=== PATIENT | female | born 1990 | race Caucasian/White ===

== ENCOUNTER 2017-08-14 06:14 | Day surgery (SDC) | payer SELFPAY ==
[2017-08-08 15:49] VITALS: BMI 24.0
[2017-08-14] MEDS ORDERED: GENTAMICIN SO4 80 MG/2 ML VIAL ONE ×3 (07:20→12:49)
[2017-08-14] MEDS ORDERED: ceFAZolin SODIUM 1 GM VIAL ONE ×3 (07:20→12:49)
[2017-08-14] MEDS ORDERED: BUPIVACAINE HCL/PF 2.5 MG/ML - 30 ML VIAL IJ ONE (07:20)
[2017-08-14] MEDS ORDERED: LIDOCAINE 1%/EPI 1:100000 (20 ML MULTI DOSE VIAL) ONE (07:20)
[2017-08-14] MEDS ORDERED: ONDANSETRON 4 MG/2 ML VIAL ONE ×2 (07:33→13:10)
[2017-08-14] MEDS ORDERED: SUCCINYLCHOLINE CHLORIDE 200 MG/10 ML VIAL ONE (07:33)
[2017-08-14] MEDS ORDERED: PROPOFOL 20 ML ONE (07:33)
[2017-08-14] MEDS ORDERED: DEXAMETHASONE SOD PHOSPHATE 4 MG/1 ML VIAL ONE ×2 (07:33→13:10)
[2017-08-14] MEDS ORDERED: ROCURONIUM BROMIDE 50 MG/5 ML VIAL ONE (07:33)
[2017-08-14] MEDS ORDERED: MIDAZOLAM HCL 2 MG/2 ML SINGLE DOSE VIAL ONE (07:34)
[2017-08-14] MEDS ORDERED: fentaNYL CITRATE 250 MCG/5 ML VIAL ONE ×2 (07:35→09:43)
[2017-08-14] MEDS ORDERED: DESFLURANE GAS 240 ML BOTTLE IH ONE (08:44)
[2017-08-14] MEDS ORDERED: ISOSULFAN BLUE 10 MG/ML VIAL SQ ONE (10:55)
[2017-08-14] MEDS ORDERED: oxyCODONE HCL 5 MG TABLET PO PRN (17:18)
[2017-08-14] MEDS ORDERED: ONDANSETRON 4 MG/2 ML VIAL IVPUSH PRN (17:18)
[2017-08-14] MEDS ORDERED: oxyCODONE HCL 5 MG TABLET ONE ×2 (17:29→18:04)
[2017-08-14] MEDS: oxyCODONE HCL 5 MG TABLET PO PRN ×2 (17:30→18:00)
[2017-08-14] MEDS ORDERED: LACTATED RINGERS SOLUTION 1,000 ML IV SCH (17:30)
[2017-08-14 17:40] VITALS: TEMP 99.1
[2017-08-14 19:13] VITALS: BP 149/70; PULSE 99
== END 2017-08-14 18:45 | disposition home or self-care (01) ==
LOC: FASU 06:14
PROVIDERS: ATTEND Surgery
PROC: 0H0U0JZ Alteration of Left Breast with Synthetic Substitute, Open Approach (ICD-10-PCS; 2017-08-14)
PROC: 0H0V0ZZ Alteration of Bilateral Breast, Open Approach (ICD-10-PCS; principal; 2017-08-14 09:06)
DX: Z41.1 Encounter for cosmetic surgery (principal)
CPT/HCPCS: 84703

== ENCOUNTER 2017-08-21 15:56 | Inpatient (IN) | payer OTHER ==
--- NOTE | 2017-08-21 16:00 | PDOC ---
History of Present Illness <Remy Fishman - Last Filed: 08/21/17 17:48> - General History Source: Patient Exam Limitations: No Limitations - History of Present Illness Initial Comments: 08/21/17 16:58 CHIEF COMPLAINT: Left breast infection HISTORY OF PRESENT ILLNESS: 26-year-old female presents from the plastic surgeon 's office for evaluation and admission of left breast infection. She had bilateral breast augmentation performed on August [address] Syeda Marrero. She has been followed since the surgery and was started 2 days ago on cefadroxil and clindamycin for redness. At this time the breast has increasing redness. Dr. Shabbir Hooks performed a wound culture in the office today. She says the patient in now for IV antibiotics, breast ultrasound examination, and admission with infectious disease consultation. Patient denies fever. She does have some tenderness of the breast in the area of the erythema. REVIEW OF SYSTEMS: No fever or chills Positive left breast pain and redness Status post surgery for breast augmentation on 08/14/2017 No nausea or vomiting <Eric Montgomery - Last Filed: 08/21/17 18:11> - General Chief Complaint: Wound Stated Complaint: LEFT BREAST WOUND INFECTION Time Seen by Provider: 08/21/17 15:59 Past History <Remy Fishman - Last Filed: 08/21/17 17:48> - Past Medical History Anemia: No Asthma: Yes (HAS NOT HAD AN EPISODE IN MANY YEARS) Cancer: No Cardiac Disorders: No CVA: No COPD: No CHF: No Dementia: No Diabetes: No GI Disorders: No Disorders: No HTN: No Hypercholesterolemia: No Liver Disease: No Seizures: No Thyroid Disease: No - Surgical History Abdominal Surgery: Yes (09/2016 ABDOMINOPLASTY) Appendectomy: No Cardiac Surgery: No Cholecystectomy: No Lung Surgery: No Neurologic Surgery: No Orthopedic Surgery: No - Suicide/Smoking/Psychosocial Hx Smoking History: Current some day smoker Have you smoked in the past 12 months: Yes If you are a former smoker, when did you quit?: OCCASIONAL HOOKAH Hx Alcohol Use: Yes (SOCIALLY) Drug/Substance Use Hx: No Substance Use Type: Alcohol <Eric Montgomery - Last Filed: 08/21/17 18:11> - Past Medical History Allergies/Adverse Reactions: Allergies Allergy/AdvReac Type Severity Reaction Status Date / Time No Known Allergies Allergy Verified 08/21/17 15:58 Home Medications: Ambulatory Orders Escitalopram Oxalate [Lexapro -] 10 mg PO HS 08/08/17 Cefadroxil [Cefadroxil] 500 mg PO BID 08/21/17 Clindamycin [Cleocin -] 300 mg PO QID 08/21/17 *Physical Exam - Vital Signs Last Vital Signs Temp Pulse Resp BP Pulse Ox 98.4 F 82 18 117/74 100 08/21/17 15:58 08/21/17 15:58 08/21/17 15:58 08/21/17 15:58 08/21/17 15:58 <Remy Fishman - Last Filed: 08/21/17 17:48> - Physical Exam Comments: 08/21/17 17:01 GENERAL: The patient is awake, alert, and fully oriented, in no acute distress. She complains of mild discomfort in the left breast. HEAD: Normal with no signs of trauma. EYES: Pupils equal, round and reactive to light, extraocular movements intact, sclera anicteric, conjunctiva clear. ENT: Ears normal, nares patent, oropharynx clear without exudates. Moist mucous membranes. NECK: Normal range of motion, supple without lymphadenopathy, JVD, or masses. LUNGS: Breath sounds equal, clear to auscultation bilaterally. No wheezes, and no crackles. HEART: Regular rate and rhythm, normal S1 and S2 without murmur, rub or gallop. BREASTS: The right breast shows healing of the areole and the inferior breast incision without discharge or erythema. The left breast reveals small areas of skin breakdown at the margin of the left areola. There is mild redness without purulent drainage. There is positive tenderness around the areola. There is no palpable fluctuance or collection on examination. ABDOMEN: Soft, nontender, normoactive bowel sounds. No guarding, no rebound. No masses. EXTREMITIES: Normal range of motion, no edema. No clubbing or cyanosis. No cords, erythema, or tenderness. NEUROLOGICAL: Cranial nerves II through XII grossly intact. Normal speech, normal gait. PSYCH: Normal mood, normal affect. SKIN: Warm, Dry, normal turgor, no rashes or lesions noted beyond the breasts as noted above. <Eric Montgomery - Last Filed: 08/21/17 18:11> ED Treatment Course - LABORATORY CBC & Chemistry Diagram: 08/21/17 16:20 08/21/17 16:20 - ADDITIONAL ORDERS Additional order review: Laboratory Results 08/21/17 16:20 Sodium 136 Potassium 3.6 Chloride 102 Carbon Dioxide 29 H Anion Gap 5 L BUN 11 Creatinine < 0.8 Creat Clearance w eGFR > 60 Random Glucose 102 Calcium 8.6 Total Bilirubin 0.6 AST 26 ALT 28 Alkaline Phosphatase 51 Total Protein 7.0 Albumin 3.7 08/21/17 16:20 RBC 4.02 MCV 87.5 MCHC 35.5 RDW 11.6 MPV 6.7 L Neutrophils % 67.7 Lymphocytes % 25.3 Monocytes % 4.7 Eosinophils % 1.8 Basophils % 0.5 - Medications Given in the ED: ED Medications Discontinued Medications Generic Name Dose Route Start Last Admin Trade Name Freq PRN Reason Stop Dose Admin Piperacillin Sod/Tazobactam 100 mls @ 200 mls/hr 08/21/17 16:01 08/21/17 16: 33 Sod 4.5 gm/ Dextrose IVPB 08/21/17 16:30 200 mls/hr ONCE ONE Administration Sodium Chloride 1,000 mls @ 1,000 mls/hr 08/21/17 16:01 08/21/17 16:20 Normal Saline - IV 08/21/17 17:00 1,000 mls/hr ASDIR STA Administration Vancomycin HCl 1,000 mg/ 250 mls @ 250 mls/hr 08/21/17 16:02 08/21/17 17:14 Dextrose IVPB 08/21/17 17:01 250 mls/hr ONCE ONE Administration Protocol <Remy Fishman - Last Filed: 08/21/17 17:48> - LABORATORY CBC & Chemistry Diagram: 08/21/17 16:20 08/21/17 16:20 <Eric Montgomery - Last Filed: 08/21/17 18:11> Medical Decision Making - Medical Decision Making 08/21/17 17:[address] Syeda Marrero at 5:49 pm in regards to preliminary ultrasound reading. <Remy Fishman - Last Filed: 08/21/17 17:48> - Medical Decision Making 08/21/17 17:50 26-year-old female presents from the plastic surgeon's office. She is status post breast augmentation on 08/14/2017. She was noted to have redness of the left breast 2 days ago and was started on cefadroxil and clindamycin. Today she was seen in follow-up in the office and was noted to have progression of the breast redness with a little bit of skin breakdown at the suture line of the areola. A wound culture was done in the office and the patient was referred to the ED for blood cultures, breast ultrasound, and admission for IV antibiotics. On my examination the right breast is healing nicely with no tenderness or erythema. The left breast has some erythema at the margin of the areola. There is no purulent drainage. There is some tenderness of the left breast but no sign of fluctuance or collection. Breast ultrasound was performed and Dr. Luis Mart today preliminary look at the study. He saw no signs of a collection. The breast ultrasound will be officially read by the specialist radiologist later. I conferred with Dr. Neil regarding these findings. Laboratory studies reviewed. White blood cell count is elevated to 11 without a left shift. Impression: Left breast infection status post surgery on 08/14/2017. Dr. Simpson at requested hospitalist admission and she will see the patient daily. She further requested ID consult and the infectious disease doctor has been paged. Patient has already been started on a stat dose of Zosyn and vancomycin in the emergency department. Laboratory study results: Laboratory Results - last 24 hr 08/21/17 08/21/17 16:20 16:20 WBC 11.4 H RBC 4.02 Hgb 12.5 Hct 35.2 MCV 87.5 MCH 31.1 MCHC 35.5 RDW 11.6 Plt Count 404 MPV 6.7 L Neutrophils % 67.7 Lymphocytes % 25.3 Monocytes % 4.7 Eosinophils % 1.8 Basophils % 0.5 Sodium 136 Potassium 3.6 Chloride 102 Carbon Dioxide 29 H Anion Gap 5 L BUN 11 Creatinine < 0.8 Creat Clearance w eGFR > 60 Random Glucose 102 Calcium 8.6 Total Bilirubin 0.6 AST 26 ALT 28 Alkaline Phosphatase 51 Total Protein 7.0 Albumin 3.7 08/21/17 18:10 Ultrasound findings discussed with Dr. Marrero. Infectious disease provider relations consultant Dr. Cordero called back and will accept the consult. Current antibiotic treatment was reviewed. <Eric Montgomery - Last Filed: 08/21/17 18:11> *DC/Admit/Observation/Transfer <Remy Fishman - Last Filed: 08/21/17 17:48> - Discharge Dispostion Admit: Yes Decision to Admit order Date/Time: 08/21/17 18:[address] Mclean, hospitalist service, consult ID, consult with plastic surgeon. <Eric Montgomery - Last Filed: 08/21/17 18:11> Diagnosis at time of Disposition: Mastitis - Discharge Dispostion Condition at time of disposition: Stable
[2017-08-21] MEDS ORDERED: PIPERACILLIN/TAZOB 4.5 GM 4.5 GM in DEXTROSE 5%-WATER 100 ML IVPB ONE (16:01)
[2017-08-21] MEDS ORDERED: SODIUM CHLORIDE 1,000 ML IV STA (16:01)
[2017-08-21] MEDS ORDERED: VANCOMYCIN 1,000 MG in DEXTROSE 5%-WATER - 250 ML IVPB ONE (16:02)
[2017-08-21] MEDS ORDERED: PIPERACILLIN/TAZOBACTAM 4.5 GM VIAL IVPB ONE (16:11)
[2017-08-21] MEDS ORDERED: VANCOMYCIN 1,000 MG VIAL (RESTRICTED TO ID ONLY) ONE (16:11)
[2017-08-21 16:42] LABS: BASO % 0.5 % (0-2.0); EOS % 1.8 % (0-4.5); HEMATOCRIT 35.2 % (32.4-45.2); HEMOGLOBIN 12.5 GM/dl (10.7-15.3); LYMPH % 25.3 % (8-40); MCH 31.1 pg (25.7-33.7); MCHC 35.5 g/dl (32.0-36.0); MEAN CELL VOLUME 87.5 fl (80-96); MEAN PLT VOLUME 6.7 fl (7.5-11.1); MONO % 4.7 % (3.8-10.2); NEUT % 67.7 % (42.8-82.8); PLATELET COUNT 404 K/MM3 (134-434); RBC 4.02 M/mm3 (3.60-5.2); RDW 11.6 % (11.6-15.6); WHITE BLOOD COUNT 11.4 K/mm3 (4.0-10.8)
[2017-08-21 17:07] LABS: ALBUMIN 3.7 g/dl (3.5-5.0); ALK PHOS 51 U/L (32-92); ANION GAP 5 (8-16); BLOOD UREA NITROGEN 11 mg/dl (7-18); CALCIUM 8.6 mg/dl (8.4-10.2); CHLORIDE 102 mmol/L (98-107); CO2 29 mmol/L (22-28); GLUCOSE,RANDOM 102 mg/dl (74-106); POTASSIUM 3.6 mmol/L (3.5-5.1); SGOT/AST 26 U/L (10-42); SGPT/ALT 28 U/L (10-40); SODIUM 136 mmol/L (136-145)
[2017-08-21 17:28] LABS: BILIRUBIN,TOTAL 0.6 mg/dl (0.2-1.0)
[2017-08-21 17:29] LABS: CREATININE < 0.8 mg/dl (0.6-1.3)
[2017-08-21 18:57] VITALS: BMI 24.1
[2017-08-21] MEDS ORDERED: PIPERACIL/TAZOB 3.375 GM 3.375 GM/50 ML PREMIX IVPB ONE (23:00)
[2017-08-21] MEDS ORDERED: PIPERACILLIN/TAZOB 3.375 GM 3.375 GM/50 ML BAG IVPB ONE (23:00)
--- NOTE | 2017-08-22 00:21 | HP ---
CHIEF COMPLAINT: left breast infection PCP: Elida HISTORY OF PRESENT ILLNESS: This is a 26 year old female with a remote history of asthma and recent breast augmentation on 08/14 who presented to the ED from her surgeon's office for cellulitis. She has been following in the office and her antibiotics were changed on Friday to cefadroxil and clindamycin but the redness has gotten worse. Her surgeon was able to squeeze out a small amount of discharge and obtained a wound culture in the office today and then sent her to the ED for IV antibiotics. Pt reports that her pain is manageable and has had no fever. ER course was notable for: (1) WBC 11.4, lactic acid WNL (2) breast and axilla US done, results pending Recent Travel: pt denies PAST MEDICAL HISTORY: asthma PAST SURGICAL HISTORY: abdominoplasty 09/25, fibroidectomy 2015 Social History: Smoking: occ IDverge Alcohol: socially 1x per week Drugs: pt denies Family History: mother alive and well father alive, s/p CA age 53 sister alive and well Allergies No Known Allergies Allergy (Verified 08/21/17 15:58) HOME MEDICATIONS: 3 Medication Instructions Recorded Escitalopram Oxalate [Lexapro -] 10 mg PO HS 08/08/17 Cefadroxil [Cefadroxil] 500 mg PO BID 08/21/17 Clindamycin [Cleocin -] 300 mg PO QID 08/21/17 REVIEW OF SYSTEMS CONSTITUTIONAL: Absent: fever, chills, diaphoresis, generalized weakness, malaise, loss of appetite, weight change HEENT: Absent: rhinorrhea, nasal congestion, throat pain, throat swelling, difficulty swallowing, mouth swelling, ear pain, eye pain, visual changes CARDIOVASCULAR: Absent: chest pain, syncope, palpitations, irregular heart rate, lightheadedness , peripheral edema RESPIRATORY: Absent: cough, shortness of breath, dyspnea with exertion, orthopnea, wheezing, stridor, hemoptysis GASTROINTESTINAL: Absent: abdominal pain, abdominal distension, nausea, vomiting, diarrhea, constipation, melena, hematochezia GENITOURINARY: Absent: dysuria, frequency, urgency, hesitancy, hematuria, flank pain, genital pain MUSCULOSKELETAL: Absent: myalgia, arthralgia, joint swelling, back pain, neck pain SKIN: Present: left breast with erythema and pain Absent: rash, itching, pallor HEMATOLOGIC/IMMUNOLOGIC: Absent: easy bleeding, easy bruising, lymphadenopathy, frequent infections ENDOCRINE: Absent: unexplained weight gain, unexplained weight loss, heat intolerance, cold intolerance NEUROLOGIC: Absent: headache, focal weakness or paresthesias, dizziness, unsteady gait, seizure, mental status changes, bladder or bowel incontinence PSYCHIATRIC: Absent: anxiety, depression, suicidal or homicidal ideation, hallucinations. PHYSICAL EXAMINATION Vital Signs - 24 hr 3 08/21/17 08/21/17 08/21/17 15:58 18:20 18:41 Temperature 98.4 F 98.8 F 98.5 F Pulse Rate 82 73 Pulse Rate [ 84 Apical] Respiratory 18 18 18 Rate Blood Pressure 117/74 107/58 Blood Pressure 106/70 [Arm] O2 Sat by Pulse 100 100 Oximetry (%) 3 08/21/17 22:00 Temperature 98.3 F Pulse Rate 83 Pulse Rate [ Apical] Respiratory 18 Rate Blood Pressure 102/53 Blood Pressure [Arm] O2 Sat by Pulse 99 Oximetry (%) GENERAL: Awake, alert, and fully oriented, in no acute distress. HEAD: Normal with no signs of trauma. EYES: Pupils equal, round and reactive to light, extraocular movements intact, sclera anicteric, conjunctiva clear. No lid lag. EARS, NOSE, THROAT: Ears normal, nares patent, oropharynx clear without exudates. Moist mucous membranes. NECK: Normal range of motion, supple without lymphadenopathy, JVD, or masses. LUNGS: Breath sounds equal, clear to auscultation bilaterally. No wheezes, and no crackles. No accessory muscle use. HEART: Regular rate and rhythm, normal S1 and S2 without murmur, rub or gallop. ABDOMEN: Soft, nontender, not distended, normoactive bowel sounds, no guarding, no rebound, no masses. No hepatomegaly or splenomegaly. MUSCULOSKELETAL: Normal range of motion at all joints. No bony deformities or tenderness. No CVA tenderness. UPPER EXTREMITIES: 2+ pulses, warm, well-perfused. No cyanosis. No clubbing. No peripheral edema. LOWER EXTREMITIES: 2+ pulses, warm, well-perfused. No calf tenderness. No peripheral edema. NEUROLOGICAL: Cranial nerves II-XII intact. Normal speech. Normal gait. PSYCHIATRIC: Cooperative. Good eye contact. Appropriate mood and affect. SKIN: Warm, dry, normal turgor, no rashes or lesions noted, normal capillary refill. Left breast periareolar area with erythema, from 12-3oclock. + warmth, no discharge at present. Laboratory Results - last 24 hr 3 08/21/17 08/21/17 08/21/17 16:20 16:20 16:20 WBC 11.4 H RBC 4.02 Hgb 12.5 Hct 35.2 MCV 87.5 MCH 31.1 MCHC 35.5 RDW 11.6 Plt Count 404 MPV 6.7 L Neutrophils % 67.7 Lymphocytes % 25.3 Monocytes % 4.7 Eosinophils % 1.8 Basophils % 0.5 Sodium 136 Potassium 3.6 Chloride 102 Carbon Dioxide 29 H Anion Gap 5 L BUN 11 Creatinine < 0.8 Creat Clearance w eGFR > 60 Random Glucose 102 Lactic Acid 0.8 Calcium 8.6 Total Bilirubin 0.6 AST 26 ALT 28 Alkaline Phosphatase 51 Total Protein 7.0 Albumin 3.7 Radiology Reports Breast axilla sono done, results pending ASSESSMENT/PLAN: 26yF s/p breast augmentation surgery 08/14/17 presented to the Ed from her plastic surgeons office for cellulitis. Breast cellulitis - pt failed outpatient therapy - cont vanc/zosyn - ID consult - plastics consult DVT PPX - low risk, pt fully ambulatory FEN - tolerating po - BMP in am - regular diet as tolerated Dispo: Pt currently requires inpatient management of her emergent condition as she failed outpatient therapy. Visit type - Emergency Visit Emergency Visit: Yes ED Registration Date: 08/21/17 Care time: The patient presented to the Emergency Department on the above date and was hospitalized for further evaluation of their emergent condition. - New Patient This patient is new to me today: Yes Date on this admission: 08/22/17 - Critical Care Critical Care patient: No Hospitalist Screening - Colonoscopy Questionnaire Colonoscopy Questionnaire: Colonoscopy Questionnaire - Patient: 50 - 75 years old and never had a screening colonoscopy: No History of colon or rectal polyps, or CA: No History of IBD, Crohn's disease or UC: No History of abdominal radiation therapy as a child: No - Relative: 1 with colon or rectal CA, or polyps at age 60 or younger: No Colon or rectal CA diagnosed at age 45 or younger: No Multiple relatives with colon or rectal CA: No - Outcome: Screening Result: Negative Screen
[2017-08-22] MEDS ORDERED: PIPERACILLIN/TAZOB 3.375 GM/50 ML PRE-DOCKED IVPB ONE (05:00)
[2017-08-22] MEDS ORDERED: VANCOMYCIN 1 GRAM (PRE-DOCKED) 1,000 MG/250 ML BAG IVPB ONE (06:00)
--- NOTE | 2017-08-22 08:20 | CON.ID ---
Consult Consult Specialty:: infectious disease Referred by:: larry Reason for Consultation:: breast cellulitis - History of Present Illness Chief Complaint: erythema left breast History of Present Illness: 26 year old female admitted for bilateral breast augmentation- she is s/p original augmentation in 2005-this is a redo. she was discharged on po antibiotics- she doesnot know what she developed some erythema of the left breast and was switch to clindamycin and cefadroxil three days ago when she returned 48hours later for wound check there was some purulence that was express from one of the incision sites on the left breast she was sent to ED for admission no fever other dyer well drainage has dried, she has minimal discomfort - History Source History Provided By: Patient Limitations to Obtaining History: No Limitations - Past Medical History Pulmonary: Yes: Asthma ...LMP: 07/18/17 - Past Surgical History Additional Surgical History: breast augmentation 08/14, abdominoplasty 09/2016. fibroidectomy 2015 - Alcohol/Substance Use Hx Alcohol Use: Yes (SOCIALLY) - Smoking History Smoking history: Current some day smoker Have you smoked in the past 12 months: Yes If you are a former smoker, when did you quit?: OCCASIONAL HOOKAH - Social History Usual Living Arrangement: With Parent ADL: Independent Occupation: operator receptionist at [employer] Place of : [place] History of Recent Travel: No Home Medications - Allergies Allergies/Adverse Reactions: Allergies Allergy/AdvReac Type Severity Reaction Status Date / Time No Known Allergies Allergy Verified 08/21/17 15:58 - Home Medications Home Medications: Ambulatory Orders Escitalopram Oxalate [Lexapro -] 10 mg PO HS 08/08/17 Cefadroxil [Cefadroxil] 500 mg PO BID 08/21/17 Clindamycin [Cleocin -] 300 mg PO QID 08/21/17 Family Disease History - Family Disease History Family Disease History: Heart Disease: Father (mi age 53) Review of Systems - Review of Systems Constitutional: reports: No Symptoms. denies: Chills, Fever Eyes: reports: No Symptoms HENT: reports: No Symptoms Neck: reports: No Symptoms Cardiovascular: reports: No Symptoms Respiratory: reports: No Symptoms. denies: Cough, SOB Gastrointestinal: reports: No Symptoms Genitourinary: reports: No Symptoms Breasts: reports: See HPI Musculoskeletal: reports: No Symptoms Neurological: reports: No Symptoms Physical Exam Vital Signs: Vital Signs Temperature 98.4 F 08/22/17 06:00 Pulse Rate 61 08/22/17 06:00 Respiratory Rate 16 08/22/17 06:00 Blood Pressure 106/55 08/22/17 06:00 O2 Sat by Pulse Oximetry (%) 99 08/21/17 22:00 Constitutional: Yes: Well Nourished, No Distress, Calm Eyes: Yes: Conjunctiva Clear HENT: Yes: Atraumatic, Normocephalic Neck: Yes: Supple, Trachea Midline Cardiovascular: Yes: Regular Rate and Rhythm Respiratory: Yes: Regular, CTA Bilaterally Gastrointestinal: Yes: Normal Bowel Sounds, Soft, Other (well healed incision lower abdomen) Breast(s): Yes: Left, Breast Implants, Other (some erythema around the upper incison of the left breast) Extremities: Yes: WNL Edema: No Labs: WBC 11.4 bun/cr 11/.8 Imaging - Results Ultrasound: Pending Problem List - Problems (1) Cellulitis of breast Assessment/Plan: cultures sent from plastic surgeon's office will need to call to get results continue vancomycin and zosyn failed clinda/cefadroxil as outpt f/u ultrasound Code(s): N61.0 - MASTITIS WITHOUT ABSCESS
[2017-08-22 08:41] LABS: BASO % 0.1 % (0-2.0); EOS % 1.8 % (0-4.5); HEMATOCRIT 33.5 % (32.4-45.2); HEMOGLOBIN 12.1 GM/dl (10.7-15.3); LYMPH % 22.8 % (8-40); MCH 31.8 pg (25.7-33.7); MEAN CELL VOLUME 88.4 fl (80-96); MEAN PLT VOLUME 6.9 fl (7.5-11.1); MONO % 6.9 % (3.8-10.2); NEUT % 68.4 % (42.8-82.8); PLATELET COUNT 369 K/MM3 (134-434); RDW 11.8 % (11.6-15.6); WHITE BLOOD COUNT 10.1 K/mm3 (4.0-10.8)
[2017-08-22] MEDS ORDERED: VANCOMYCIN 1,000 MG in DEXTROSE 5%-WATER - 250 ML IVPB SCH (08:45)
[2017-08-22 09:20] LABS: ANION GAP 5 (8-16); BLOOD UREA NITROGEN 8 mg/dl (7-18); CALCIUM 8.4 mg/dl (8.4-10.2); CHLORIDE 105 mmol/L (98-107); CO2 26 mmol/L (22-28); GLUCOSE,RANDOM 106 mg/dl (74-106); MAGNESIUM 1.9 mg/dL (1.8-2.4); POTASSIUM 3.8 mmol/L (3.5-5.1); SODIUM 136 mmol/L (136-145)
[2017-08-22 09:32] LABS: CREATININE < 0.8 mg/dl (0.6-1.3)
--- NOTE | 2017-08-22 09:37 | PN ---
Physical Exam: SUBJECTIVE: Patient seen and examined, patient reports intermittent pain to left breast. OBJECTIVE: Patient is a 26 y/o female, with a past medical history of asthma. Patient is s/p bilateral breast augmentation, 08/14/17, Dr Marrero. Patent was admitted from the emergency department for left breast cellulitis after failing outpatient therapy. Vital Signs Period Temp Pulse Resp BP Sys/Jara Pulse Ox Last 24 Hr 98.3 F-98.8 F 61-84 16-18 102-117/53-74 99-100 GENERAL: The patient is awake, alert, and fully oriented, in no acute distress. HEAD: Normal with no signs of trauma. EYES: PERRL, extraocular movements intact, sclera anicteric, conjunctiva clear. No ptosis. ENT: Ears normal, nares patent, oropharynx clear without exudates, moist mucous membranes. NECK: Trachea midline, full range of motion, supple. LUNGS: Breath sounds equal, clear to auscultation bilaterally, no wheezes, no crackles, no accessory muscle use. HEART: Regular rate and rhythm, S1, S2 without murmur, rub or gallop. ABDOMEN: Soft, nontender, nondistended, normoactive bowel sounds, no guarding, no rebound, no hepatosplenomegaly, no masses. EXTREMITIES: 2+ pulses, warm, well-perfused, no edema. NEUROLOGICAL: Cranial nerves II through XII grossly intact. Normal speech, gait not observed. PSYCH: Normal mood, normal affect. SKIN: Warm, dry, normal turgor, no rashes or lesions noted, left breast, scant erythema to the areola, at 3:oo and 4:00, sutures intact, no drainage noted, no fluctance noted. right breast, sutures intact, well approximated, no erythema noted Laboratory Results - last 24 hr 08/21/17 08/21/17 08/21/17 16:20 16:20 16:20 WBC 11.4 H RBC 4.02 Hgb 12.5 Hct 35.2 MCV 87.5 MCH 31.1 MCHC 35.5 RDW 11.6 Plt Count 404 MPV 6.7 L Neutrophils % 67.7 Lymphocytes % 25.3 Monocytes % 4.7 Eosinophils % 1.8 Basophils % 0.5 Sodium 136 Potassium 3.6 Chloride 102 Carbon Dioxide 29 H Anion Gap 5 L BUN 11 Creatinine < 0.8 Creat Clearance w eGFR > 60 Random Glucose 102 Lactic Acid 0.8 Calcium 8.6 Phosphorus Magnesium Total Bilirubin 0.6 AST 26 ALT 28 Alkaline Phosphatase 51 Total Protein 7.0 Albumin 3.7 08/22/17 08/22/17 07:20 07:20 WBC 10.1 RBC 3.80 Hgb 12.1 Hct 33.5 MCV 88.4 MCH 31.8 MCHC 36.0 RDW 11.8 Plt Count 369 MPV 6.9 L Neutrophils % 68.4 Lymphocytes % 22.8 Monocytes % 6.9 Eosinophils % 1.8 Basophils % 0.1 Sodium 136 Potassium 3.8 Chloride 105 Carbon Dioxide 26 Anion Gap 5 L BUN 8 D Creatinine < 0.8 Creat Clearance w eGFR Random Glucose 106 Lactic Acid Calcium 8.4 Phosphorus 4.0 Magnesium 1.9 Total Bilirubin AST ALT Alkaline Phosphatase Total Protein Albumin Active Medications Generic Name Dose Route Start Last Admin Trade Name Freq PRN Reason Stop Dose Admin Escitalopram Oxalate 10 mg 08/22/17 22:00 Lexapro - PO HS RENEE Vancomycin HCl 1,000 mg in 250 mls @ 166.667 mls/hr 08/22/17 18:00 Vancomycin (Pre-Docked) IVPB Q12H [facility] Protocol Piperacillin Sod/Tazobactam Sod 3.375 gm 08/22/17 13:00 Zosyn 3.375gm Ivpb (Pre-Docked) IVPB Q8H [facility] IMAGING ultrasound of left breast: post surgical changes ASSESSMENT/PLAN: 1) ID left breast celulitis s/p billateral breast augmentation - patient was receiving clindaymcin as outpatient, patient was also treated with doxycline and cefadroxil prior to admissio, continue vanc and zosy (08/22 - ), no leukocytosis noted, patient is afebrile - ID, Dr Maxwell consulted and following - Dr Marrero consulted and following, discussed with Dr Marrero, copy of wound culture results reviewed from Dr Marrero, preliminary results gram negative rods noted, awaiting final 2) pulm asthma - no acute excerbation at this time - continue albuterol prn ppx - oob - scd dispo: pt requires inpatient admission Visit type - Emergency Visit Emergency Visit: Yes ED Registration Date: 08/21/17 Care time: The patient presented to the Emergency Department on the above date and was hospitalized for further evaluation of their emergent condition. - New Patient This patient is new to me today: Yes Date on this admission: 08/22/17 - Critical Care Critical Care patient: No - Discharge Referral Referred to [facility] Med [facility].C[facility] No
[2017-08-22] MEDS ORDERED: oxyCODONE HCL 5 MG TABLET ONE (11:18)
[2017-08-22] MEDS ORDERED: ALBUTEROL SO4 0.083% IH SOL 2.5 MG/3 ML VIAL.NEB. NEB PRN (11:45)
[2017-08-22] MEDS: oxyCODONE HCL 5 MG TABLET PO PRN ×2 (11:45→13:30)
[2017-08-22] MEDS: DOCUSATE SODIUM 100 MG CAPSULE (FP) PO SCH ×2 (13:31→21:47)
[2017-08-22] MEDS: PIPERACILLIN/TAZOB 3.375 GM/50 ML PRE-DOCKED IVPB SCH ×2 (13:31→21:47)
[2017-08-22] MEDS: LACTOBACILLUS ACIDOPHILUS 1 TABLET PO SCH (14:00)
[2017-08-22] MEDS: MUPIROCIN 2% TOPICAL OINTMENT 22 GM TUBE TP SCH ×2 (14:00→21:47)
[2017-08-22] MEDS: VANCOMYCIN 1 GRAM (PRE-DOCKED) 1,000 MG/250 ML BAG IVPB SCH (18:34)
[2017-08-22] MEDS: ESCITALOPRAM OXALATE 10 MG TABLET (FP) PO SCH (21:47)
[2017-08-23] MEDS: oxyCODONE HCL 5 MG TABLET PO PRN ×3 (00:25→20:15)
[2017-08-23] MEDS: PIPERACILLIN/TAZOB 3.375 GM/50 ML PRE-DOCKED IVPB SCH ×3 (05:31→20:15)
[2017-08-23] MEDS: DOCUSATE SODIUM 100 MG CAPSULE (FP) PO SCH ×3 (05:31→21:47)
[2017-08-23] MEDS: MUPIROCIN 2% TOPICAL OINTMENT 22 GM TUBE TP SCH ×3 (05:31→21:48)
[2017-08-23] MEDS: VANCOMYCIN 1 GRAM (PRE-DOCKED) 1,000 MG/250 ML BAG IVPB SCH (06:05)
[2017-08-23] MEDS: ENOXAPARIN NA (PORCINE) 40 MG/0.4 ML DISP.SYRIN SQ SCH (09:42)
[2017-08-23] MEDS: LACTOBACILLUS ACIDOPHILUS 1 TABLET PO SCH (09:42)
--- NOTE | 2017-08-23 10:08 | PN ---
Physical Exam: SUBJECTIVE: Patient seen and examined, pt reports breast pain improved, denies fever, chills, cp, sob, palpitations, abdominal pain, N/V/D. OBJECTIVE: Vital Signs Period Temp Pulse Resp BP Sys/Jara Pulse Ox Last 24 Hr 98.4 F-98.9 F 60-74 16-18 103-131/50-62 97-99 GENERAL: The patient is awake, alert, and fully oriented, in no acute distress. HEAD: Normal with no signs of trauma. EYES: PERRL, extraocular movements intact, sclera anicteric, conjunctiva clear. No ptosis. ENT: Ears normal, nares patent, oropharynx clear without exudates, moist mucous membranes. NECK: Trachea midline, full range of motion, supple. LUNGS: Breath sounds equal, clear to auscultation bilaterally, no wheezes, no crackles, no accessory muscle use. HEART: Regular rate and rhythm, S1, S2 without murmur, rub or gallop. ABDOMEN: Soft, nontender, nondistended, normoactive bowel sounds, no guarding, no rebound, no hepatosplenomegaly, no masses EXTREMITIES: 2+ pulses, warm, well-perfused, no edema. NEUROLOGICAL: Cranial nerves II through XII grossly intact. Normal speech, gait not observed. PSYCH: Normal mood, normal affect. SKIN: Left breast cellulitis, no drainage + tender and mild redness Warm, dry, normal turgor, no rashes or lesions noted Active Medications Generic Name Dose Route Start Last Admin Trade Name Freq PRN Reason Stop Dose Admin Acetaminophen 650 mg 08/22/17 11:41 Tylenol - PO Q4H PRN PAIN LEVEL 1-5 Albuterol Sulfate 1 amp 08/22/17 11:45 Ventolin 0.083% Nebulizer Soln - NEB Q4H PRN SHORT OF BREATH/WHEEZING Docusate Sodium 100 mg 08/22/17 14:00 08/23/17 05:31 Colace - PO 100 mg TID RENEE Administration Enoxaparin Sodium 40 mg 08/23/17 10:00 Lovenox - SQ DAILY RENEE Escitalopram Oxalate 10 mg 08/22/17 22:00 08/22/17 21:47 Lexapro - PO 10 mg HS RENEE Administration Vancomycin HCl 1,000 mg in 250 mls @ 166.667 mls/hr 08/22/17 18:00 08/23/17 06:05 Vancomycin (Pre-Docked) IVPB 166.667 mls/hr Q12H RENEE Administration Protocol Lactobacillus Acidophilus 1 cap 08/22/17 11:45 08/22/17 14:00 Bacid - PO 1 cap DAILY RENEE Administration Mupirocin 1 applic 08/22/17 14:00 08/23/17 05:31 Bactroban 2% Ointment - TP 1 applic TID RENEE Administration Oxycodone HCl 5 mg 08/22/17 11:42 08/23/17 00:25 Roxicodone - PO 5 mg Q4H PRN Administration PAIN LEVEL 6-10 Piperacillin Sod/Tazobactam Sod 3.375 gm 08/22/17 13:00 08/23/17 05:31 Zosyn 3.375gm Ivpb (Pre-Docked) IVPB 3.375 gm Q8H RENEE Administration Microbiology 08/21/17 16:20 Blood Culture - Preliminary Blood - Peripheral Venous NO GROWTH OBTAINED AFTER 24 HOURS, INCUBATION TO CONTINUE FOR 4 DAYS. 08/21/17 16:20 Blood Culture - Preliminary Blood - Peripheral Venous NO GROWTH OBTAINED AFTER 24 HOURS, INCUBATION TO CONTINUE FOR 4 DAYS. IMAGING Ultrasound of left breast: post surgical changes ASSESSMENT/PLAN: Patient is a 26 y/o female, with a past medical history of asthma. Patient is s/ p bilateral breast augmentation, 08/14/[address] Mrarero. Patent admitted from the emergency department for left breast cellulitis after failing outpatient therapy. * Left breast cellulitis -s/p bilateral breast augmentation on 08/14/17 - out pt tx on clindaymcin, doxycycline and cefadroxil - ID following, input appreciated - wound culture preliminary GNRs and pneumonias -dc 'd vanco and will cont on Unasyn as per ID - leukocytosis resolved, afebrile *Hx of asthma - no acute exacerbation at this time - continue albuterol prn ppx - oob - scd Dispo: pt requires inpatient admission Visit type - Emergency Visit Emergency Visit: Yes ED Registration Date: 08/21/17 Care time: The patient presented to the Emergency Department on the above date and was hospitalized for further evaluation of their emergent condition. - New Patient This patient is new to me today: Yes Date on this admission: 08/23/17 - Critical Care Critical Care patient: No
[2017-08-23] MEDS: ACETAMINOPHEN 325 MG TABLET (FP) PO PRN (16:09)
[2017-08-23] MEDS: ESCITALOPRAM OXALATE 10 MG TABLET (FP) PO SCH (21:47)
[2017-08-23] MEDS ORDERED: MELATONIN 5 MG TABLETS PO PRN (22:17)
[2017-08-24] MEDS: PIPERACILLIN/TAZOB 3.375 GM/50 ML PRE-DOCKED IVPB SCH ×2 (04:18→13:36)
[2017-08-24] MEDS: oxyCODONE HCL 5 MG TABLET PO PRN ×2 (04:26→10:05)
[2017-08-24] MEDS: MUPIROCIN 2% TOPICAL OINTMENT 22 GM TUBE TP SCH ×3 (06:46→22:12)
[2017-08-24] MEDS: DOCUSATE SODIUM 100 MG CAPSULE (FP) PO SCH ×3 (06:46→22:00)
[2017-08-24] MEDS: LACTOBACILLUS ACIDOPHILUS 1 TABLET PO SCH (10:06)
[2017-08-24] MEDS: ENOXAPARIN NA (PORCINE) 40 MG/0.4 ML DISP.SYRIN SQ SCH (10:06)
[2017-08-24] MEDS: ACETAMINOPHEN 325 MG TABLET (FP) PO PRN (10:06)
--- NOTE | 2017-08-24 16:29 | DS ---
Physical Examination Vital Signs: Vital Signs Temperature 98.9 F 08/24/17 09:58 Pulse Rate 87 08/24/17 09:58 Respiratory Rate 18 08/24/17 09:58 Blood Pressure 130/81 08/24/17 09:58 O2 Sat by Pulse Oximetry (%) 97 08/24/17 09:00 Labs: CBC, BMP 08/22/17 07:20 08/22/17 07:20 Discharge Summary Reason For Visit: MASTITIS LEFT BREAST Current Active Problems Cellulitis of breast (Acute) Mastitis (Acute) Condition: Improved - Instructions Diet, Activity, Other Instructions: Please return to the ED with new, persistent, or worsening symptoms. Please follow-up with providers as indicated. Referrals: Mookie Prasad MD [Staff Physician] - 1 Week Syeda Marrero MD [Staff Physician] - (Please follow-up with your plastic surgeon as directed from Dr. Marrero. Continue all post-operative instructions as given by Dr. Marrero. ) Disposition: HOME - Home Medications Comprehensive Discharge Medication List: Ambulatory Orders Escitalopram Oxalate [Lexapro -] 10 mg PO HS 08/08/17 Ciprofloxacin [Cipro -] 500 mg PO Q12H #14 tablet 08/24/17
[2017-08-24] MEDS: PIPERACILLIN/TAZOB 3.375 GM 3.375 GM/50 ML BAG IVPB SCH (20:00)
[2017-08-24] MEDS ORDERED: LORazepam 0.5 MG TABLET PO PRN (20:19)
[2017-08-24] MEDS ORDERED: oxyCODONE HCL 5 MG TABLET PO PRN (20:20)
[2017-08-24] MEDS ORDERED: PIPERACILLIN/TAZOB 3.375 GM 3.375 GM/50 ML BAG IVPB SCH (21:00)
[2017-08-24] MEDS: ESCITALOPRAM OXALATE 10 MG TABLET (FP) PO SCH (22:00)
[2017-08-25] MEDS: PIPERACILLIN/TAZOB 3.375 GM 3.375 GM/50 ML BAG IVPB SCH ×3 (03:00→15:07)
[2017-08-25 06:28] VITALS: BP 112/58; PULSE 71; TEMP 98.3
[2017-08-25] MEDS: DOCUSATE SODIUM 100 MG CAPSULE (FP) PO SCH ×2 (06:56→15:07)
[2017-08-25] MEDS: MUPIROCIN 2% TOPICAL OINTMENT 22 GM TUBE TP SCH ×2 (06:56→15:07)
--- NOTE | 2017-08-25 07:19 | PN ---
Progress Note (short form) - Note Progress Note: Subjective: The patient was seen and examined a the bedside, she would like to go home today. Discussed with Dr. Donahue, if cleared by plastic surgery can discharge on Cipro 500mg po bid x7 days Current Medications Generic Name Dose Route Start Last Admin Trade Name Freq PRN Reason Stop Dose Admin Acetaminophen 650 mg 08/22/17 11:41 08/24/17 10:06 Tylenol - PO 650 mg Q4H PRN Administration PAIN LEVEL 1-5 Albuterol Sulfate 1 amp 08/22/17 11:45 Ventolin 0.083% Nebulizer Soln - NEB Q4H PRN SHORT OF BREATH/WHEEZING Docusate Sodium 100 mg 08/22/17 14:00 08/25/17 06:56 Colace - PO 100 mg TID RENEE Administration Enoxaparin Sodium 40 mg 08/23/17 10:00 08/24/17 10:06 Lovenox - SQ 40 mg DAILY RENEE Administration Escitalopram Oxalate 10 mg 08/22/17 22:00 08/24/17 22:00 Lexapro - PO 10 mg HS RENEE Administration Piperacillin Sod/Tazobactam Sod 3.375 gm in 50 mls @ 100 mls/hr 08/24/17 20: 00 08/25/17 03:00 Zosyn 3.375gm Ivpb (Pre-Docked) IVPB 100 mls/hr Q6H-IV RENEE Administration Protocol Lactobacillus Acidophilus 1 cap 08/22/17 11:45 08/24/17 10:06 Bacid - PO 1 cap DAILY RENEE Administration Lorazepam 1 mg 08/24/17 20:19 08/24/17 21:00 Ativan - PO 1 mg Q6H PRN Administration ANXIETY Melatonin 5 mg 08/23/17 22:17 08/23/17 22:28 Melatonin PO 5 mg HS PRN Administration INSOMNIA Mupirocin 1 applic 08/22/17 14:00 08/25/17 06:56 Bactroban 2% Ointment - TP 1 applic TID RENEE Administration Oxycodone HCl 5 mg 08/24/17 20:20 Roxicodone - PO Q4H PRN PAIN LEVEL 6-10 Objective: Vital Signs Period Temp Pulse Resp BP Sys/Jara Pulse Ox Last 24 Hr 98.1 F-98.9 F 71-87 17-18 112-130/58-81 97-100 Physical Exam: General: NAD, A&Ox3 Skin: B/l breast healing incisions. Left breast with mild inferior areola erythema. No drainage noted from incision CBCD WBC 10.1 K/mm3 (4.0-10.8) 08/22/17 07:20 RBC 3.80 M/mm3 (3.60-5.2) 08/22/17 07:20 Hgb 12.1 GM/dl (10.7-15.3) 08/22/17 07:20 Hct 33.5 % (32.4-45.2) 08/22/17 07:20 MCV 88.4 fl (80-96) 08/22/17 07:20 MCHC 36.0 g/dl (32.0-36.0) 08/22/17 07:20 RDW 11.8 % (11.6-15.6) 08/22/17 07:20 Plt Count 369 K/MM3 (134-434) 08/22/17 07:20 MPV 6.9 fl (7.5-11.1) L 08/22/17 07:20 CMP Sodium 136 mmol/L (136-145) 08/22/17 07:20 Potassium 3.8 mmol/L (3.5-5.1) 08/22/17 07:20 Chloride 105 mmol/L (98-107) 08/22/17 07:20 Carbon Dioxide 26 mmol/L (22-28) 08/22/17 07:20 Anion Gap 5 (8-16) L 08/22/17 07:20 BUN 8 mg/dl (7-18) D 08/22/17 07:20 Creatinine < 0.8 mg/dl (0.6-1.3) 08/22/17 07:20 Creat Clearance w eGFR > 60 (>60) 08/21/17 16:20 Random Glucose 106 mg/dl (74-106) 08/22/17 07:20 Calcium 8.4 mg/dl (8.4-10.2) 08/22/17 07:20 Total Bilirubin 0.6 mg/dl (0.2-1.0) 08/21/17 16:20 AST 26 U/L (10-42) 08/21/17 16:20 ALT 28 U/L (10-40) 08/21/17 16:20 Alkaline Phosphatase 51 U/L (32-92) 08/21/17 16:20 Total Protein 7.0 g/dl (6.4-8.3) 08/21/17 16:20 Albumin 3.7 g/dl (3.5-5.0) 08/21/17 16:20 Microbiology 08/21/17 16:20 Blood - Peripheral Venous Blood Culture - Preliminary NO GROWTH OBTAINED AFTER 72 HOURS, INCUBATION TO CONTINUE FOR 2 DAYS. 08/21/17 16:20 Blood - Peripheral Venous Blood Culture - Preliminary NO GROWTH OBTAINED AFTER 72 HOURS, INCUBATION TO CONTINUE FOR 2 DAYS. Assessment: This is a 26 year old female with PMHx of breast augmentation () who presented to the ED with left breast cellulitis Plan: 1) Left breast cellulitis - Improving - Continue Zosyn - Discussed with Dr. Donahue, once cleared by plastics, can discharge on Cipro 500mg po bid x7 days - Pain management 2) Asthma - No active issues 3) F/E/N: - Regular diet - Monitor electrolytes 4) Prophylaxis: - OOB ambulating - Lovenox 40mg sq daily 5) Dispo: - Once cleared by surgery CODE STATUS: FULL CODE Visit type - Emergency Visit Emergency Visit: Yes ED Registration Date: 08/21/17 Care time: The patient presented to the Emergency Department on the above date and was hospitalized for further evaluation of their emergent condition. - New Patient This patient is new to me today: Yes Date on this admission: 08/25/17 - Critical Care Critical Care patient: No
--- NOTE | 2017-08-25 08:34 | PN ---
Progress Note (short form) - Note Progress Note: no complaints Vital Signs Period Temp Pulse Resp BP Sys/Ajra Pulse Ox Last 24 Hr 98.1 F-98.9 F 71-87 17-18 112-130/58-81 97-100 some bleeding from suture left breast suture minimal drainage right breast lower aspect of incision no erythema CBC, BMP 08/22/17 07:20 wound culture [facility] pseudomononas sensitive to quinolones and zosyn a/p cellulitis s/p breast implants-pseudomonas continue zosyn until cleared for discharge by surgeon po ciprofloxacin when ready for discharge (no other oral options) planning two weeks for now may need longer course based on clinical course no exercising while taking quinolones thanks f/u esr/crp Problem List - Problems (1) Cellulitis of breast Code(s): N61.0 - MASTITIS WITHOUT ABSCESS
[2017-08-25 08:42] LABS: BASO % 0.3 % (0-2.0); EOS % 1.4 % (0-4.5); HEMATOCRIT 37.7 % (32.4-45.2); LYMPH % 21.9 % (8-40); MCH 30.4 pg (25.7-33.7); MCHC 34.5 g/dl (32.0-36.0); MEAN CELL VOLUME 88.1 fl (80-96); MEAN PLT VOLUME 6.9 fl (7.5-11.1); MONO % 5.3 % (3.8-10.2); NEUT % 71.1 % (42.8-82.8); PLATELET COUNT 445 K/MM3 (134-434); RBC 4.28 M/mm3 (3.60-5.2); RDW 11.5 % (11.6-15.6); WHITE BLOOD COUNT 9.7 K/mm3 (4.0-10.8)
[2017-08-25] MEDS: ENOXAPARIN NA (PORCINE) 40 MG/0.4 ML DISP.SYRIN SQ SCH (09:13)
[2017-08-25] MEDS: LACTOBACILLUS ACIDOPHILUS 1 TABLET PO SCH (09:13)
--- NOTE | 2017-08-25 13:28 | DS ---
Physical Exam: SUBJECTIVE: Patient seen and examined, denies any tactile fevers or pain. OBJECTIVE: This is a 26 year old female with a remote history of asthma and recent breast augmentation on 08/14 who presented to the ED from her surgeon's office for cellulitis. She has been following in the office and her antibiotics were changed on Friday to cefadroxil and clindamycin but the redness has gotten worse. Her surgeon was able to squeeze out a small amount of discharge and obtained a wound culture in the office today and then sent her to the ED for IV antibiotics. Pt reports that her pain is manageable and has had no fever. ER course was notable for: (1) WBC 11.4, lactic acid WNL (2) breast and axilla US done, results pending Vital Signs Period Temp Pulse Resp BP Sys/Jara Pulse Ox Last 24 Hr 98.1 F-98.3 F 71-81 18-18 112-128/58-71 97-100 PHYSICAL EXAM GENERAL: The patient is awake, alert, and fully oriented, in no acute distress. HEAD: Normal with no signs of trauma. EYES: PERRL, extraocular movements intact, sclera anicteric, conjunctiva clear. ENT: Ears normal, nares patent, oropharynx clear without exudates, moist mucous membranes. NECK: Trachea midline, full range of motion, supple. LUNGS: Breath sounds equal, clear to auscultation bilaterally, no wheezes, no crackles, no accessory muscle use. HEART: Regular rate and rhythm, S1, S2 without murmur, rub or gallop. ABDOMEN: Soft, nontender, nondistended, normoactive bowel sounds, no guarding, no rebound, no hepatosplenomegaly, no masses. EXTREMITIES: 2+ pulses, warm, well-perfused, no edema. NEUROLOGICAL: Cranial nerves II through XII grossly intact. Normal speech, gait not observed. PSYCH: Normal mood, normal affect. SKIN: right breast, incision well approximated, sutures intact, minimal drainage , left breast: incision well approximated, minmal drainage no erythema noted, Warm, dry, normal turgor, no rashes or lesions noted. LABS Laboratory Results - last 24 hr 08/25/17 08/25/17 08/25/17 07:05 07:05 07:05 WBC 9.7 RBC 4.28 Hgb 13.0 Hct 37.7 MCV 88.1 MCH 30.4 MCHC 34.5 RDW 11.5 L Plt Count 445 H MPV 6.9 L Neutrophils % 71.1 Lymphocytes % 21.9 Monocytes % 5.3 Eosinophils % 1.4 Basophils % 0.3 ESR 44 H C-Reactive Protein 2.3 H Microbiology 08/23/17 20:40 Breast - Left Wound Culture - Preliminary Pseudomonas Species 08/21/17 16:20 Blood - Peripheral Venous Blood Culture - Preliminary NO GROWTH OBTAINED AFTER 72 HOURS, INCUBATION TO CONTINUE FOR 2 DAYS. 08/21/17 16:20 Blood - Peripheral Venous Blood Culture - Preliminary NO GROWTH OBTAINED AFTER 72 HOURS, INCUBATION TO CONTINUE FOR 2 DAYS. HOSPITAL COURSE: * Left breast cellulitis, much improved, treated with zosyn (08/22-08/25) and vancomycin (08/22-08/23), no leukocytosis, patient is afebrile, Dr Marrero, plastic surgeon consulted and followed. PLAN: -discharge home with follow up with plastic surgeon - transition to ciprofloxacin Date of Admission:08/21/17 Date of Discharge: 08/25/17 Minutes to complete discharge: 45 Discharge Summary Reason For Visit: MASTITIS LEFT BREAST Current Active Problems Cellulitis of breast (Acute) Mastitis (Acute) Condition: Improved - Instructions Diet, Activity, Other Instructions: Please return to the ED with new, persistent, or worsening symptoms. Please follow-up with providers as indicated. Referrals: Mookie Prasad MD [Staff Physician] - 1 Week Syeda Marrero MD [Staff Physician] - (Please follow-up with your plastic surgeon as directed from Dr. Marrero. Continue all post-operative instructions as given by Dr. Marrero. ) Disposition: HOME - Home Medications Comprehensive Discharge Medication List: Ambulatory Orders Escitalopram Oxalate [Lexapro -] 10 mg PO HS 08/08/17 Ciprofloxacin [Cipro -] 500 mg PO Q12H #14 tablet 08/24/17 - Discharge Referral Referred to [facility] No
--- NOTE | 2017-08-25 17:05 | EKG ---
Test Reason : Blood Pressure : / mmHG Vent. Rate : 074 BPM Atrial Rate : 074 BPM P-R Int : 144 ms QRS Dur : 080 ms QT Int : 370 ms P-R-T Axes : 057 061 052 degrees QTc Int : 410 ms NORMAL SINUS RHYTHM INCOMPLETE RIGHT BUNDLE BRANCH BLOCK ABNORMAL ECG NO PREVIOUS ECGS AVAILABLE Confirmed by BERNICE MCKEON, ROD ([id number]) on 08/25/2017 5:04:43 PM Referred By: ULI TALBERT Confirmed By:ROD QUEEN MD
== END 2017-08-25 16:45 | disposition home or self-care (01) | DRG 385 ==
LOC: FER 15:56 → FM/S 18:05 → UNDOADMIN 18:19
PROVIDERS: ADMIT Hospitalist; ATTEND Nurse Practitioner Family
DX: N61.0 Mastitis without abscess (principal); F17.210 Nicotine dependence, cigarettes, uncomplicated; J45.909 Unspecified asthma, uncomplicated
CPT/HCPCS: 36415; 76641-TC-LT; 80048; 80053; 83605; 83735; 84100; 85025; 85651; 86140; 87040; 87070; 87186; 87205; 93005; 99282-25; J7030